=== PATIENT | male | born 1945 | race Caucasian/White ===

== ENCOUNTER 2020-04-21 12:59 | Emergency (ER) | payer MEDICARE, OTHER ==
[~2020-04-21] VITALS: Ht 165.1 cm; Wt 73.0 kg
[~2020-04-21 12:59] MED LIST: ALLO100T PO; AMLO5TAB88 PO; ASPI325T85 PO; ATOR40TA70 PO; AZIT500T8 PO; CLOP75TA33 PO; GABA300C PO; INSU100I7 SQ; INSU3INS6 SUBCUT; LOSA50TA41 PO; TRAM50TA3 PO
[2020-04-21 13:23] VITALS: BP 146/68
== END 2020-04-21 15:24 | disposition home or self-care (01) ==
LOC: ER 12:59
DX: H66.91 Otitis media, unspecified, right ear (principal)
CPT/HCPCS: 99283

== ENCOUNTER 2022-03-15 09:40 | Emergency (ER) | payer MEDICARE, MEDICAID, OTHER ==
[~2022-03-15 09:40] MED LIST changes: +ASPI-867 PO; -ASPI325T85 PO; -AZIT500T8 PO; +DULA0.75 SQ; +INSU100C6 SQ; -INSU100I7 SQ; +INSU100V36 SQ; -INSU3INS6 SUBCUT; +LOSA100T32 MT; -LOSA50TA41 PO; -TRAM50TA3 PO
== END 2022-03-15 15:40 | disposition left against medical advice (07) ==
LOC: ER 09:56
DX: Z53.21 Procedure and treatment not carried out due to patient leaving prior to being seen by health care provider (principal)

== ENCOUNTER 2022-10-04 11:35 | Emergency (ER) | payer MEDICARE, MEDICAID ==
[~2022-10-04] VITALS: Ht 160 cm; Wt 91.0 kg
[2022-10-04] MEDS ORDERED: ACETAMINOPHEN 325MG TABLET PO ONE (13:30)
[2022-10-04] MEDS ORDERED: IBUPROFEN 400MG TABLET PO ONE (13:30)
[2022-10-04] MEDS ORDERED: ACET-2708 MT (15:40)
[2022-10-04 15:58] VITALS: BP 166/105
== END 2022-10-04 16:01 | disposition home or self-care (01) ==
LOC: ER 11:35
DX: M54.2 Cervicalgia (principal); G89.29 Other chronic pain; R00.0 Tachycardia, unspecified; M25.519 Pain in unspecified shoulder; I12.9 Hypertensive chronic kidney disease with stage 1 through stage 4 chronic kidney disease, or unspecified chronic kidney disease; E11.22 Type 2 diabetes mellitus with diabetic chronic kidney disease; N18.9 Chronic kidney disease, unspecified; I25.10 Atherosclerotic heart disease of native coronary artery without angina pectoris; Z79.4 Long term (current) use of insulin; Z79.899 Other long term (current) drug therapy
CPT/HCPCS: 99284

== ENCOUNTER 2023-12-05 16:52 | Emergency (ER) | payer MEDICARE, OTHER, MEDICAID ==
[~2023-12-05] VITALS: Ht 162.6 cm; Wt 68.9 kg
[~2023-12-05 16:52] MED LIST changes: +ACET-2708 MT; -LOSA100T32 MT; +LOSA100T33 MT
[2023-12-05 17:03] VITALS: O2SAT 100
[2023-12-05 17:48] LABS: BASOPHILS % 0.8 % (0.0-2.0); EOSINOPHILS % 4.5 % (0.0-5.0); HEMATOCRIT. 38.4 % (42.0-52.0); HEMOGLOBIN. 13.1 g/dL (14.0-18.0); LYMPHOCYTES % 30.2 % (20.0-50.0); MEAN CORPUSCULAR HEMOGLOBIN 32.8 pg (28.0-32.0); MEAN CORPUSCULAR HGB CONC 34.2 g/dL (31.0-37.0); MEAN CORPUSCULAR VOLUME 95.9 fL (80.0-94.0); MEAN PLATELET VOLUME 8.7 fl (7.4-10.4); MONOCYTES % 7.3 % (2.0-8.0); NEUTROPHILS % 57.2 % (40.0-76.0); PLATELET 208 x1000/uL (130-400); RED CELL DISTRIBUTION WIDTH 12.9 % (11.6-14.6); WHITE BLOOD COUNT 8.5 x1000/uL (4.5-11.0)
[2023-12-05 17:54] LABS: POTASSIUM 4.5 mEq/L (3.5-5.1)
[2023-12-05 17:55] LABS: CALCIUM 9.5 mg/dL (8.7-10.4)
[2023-12-05 18:00] LABS: CREATININE 2.1 mg/dL (0.6-1.3)
[2023-12-05 19:07] LABS: CLARITY URINE CLEAR (CLEAR); COLOR URINE YELLOW (YELLOW); GLUCOSE URINE NEGATIVE (NEGATIVE); KETONES URINE NEGATIVE (NEGATIVE); LEUKOCYTE ESTERASE URINE NEGATIVE (NEGATIVE); NITRITE URINE NEGATIVE (NEGATIVE); OCCULT BLOOD URINE NEGATIVE (NEGATIVE); PH URINE 6.5 (4.5-8.0); PROTEIN URINE 1+ (NEGATIVE); SPECIFIC GRAVITY URINE 1.008 (1.005-1.030); UROBILINOGEN URINE 0.2 E.U./dL (0.2-1.0)
[2023-12-05 19:23] LABS: BACTERIA URINE NONE SEEN; RBC URINE NONE SEEN /hpf (0-2); WBC URINE 0-2 /hpf (0-2)
[2023-12-05] MEDS ORDERED: MECL-299 MT (19:47)
[2023-12-05 20:15] VITALS: BP 154/68; PULSE 78; RESP 18; TEMP 98.6
== END 2023-12-05 20:17 | disposition home or self-care (01) ==
LOC: ER 16:52
DX: R47.81 Slurred speech (principal); E11.9 Type 2 diabetes mellitus without complications; E78.00 Pure hypercholesterolemia, unspecified; I10 Essential (primary) hypertension
CPT/HCPCS: 36415; 80048; 81003; 82962; 85025; 93005; 99291